=== PATIENT | female | born 1955 | race African-American/Black ===

== ENCOUNTER 2016-12-17 12:01 | Emergency (ER) | payer OTHER ==
[~2016-12-17] VITALS: Ht 167.6 cm; Wt 120.0 kg
[~2016-12-17 12:01] MED LIST: Z.0.NO CURRENT MEDS
[2016-12-17 12:04] VITALS: BP 182/117; PULSE 89; RESP 16; TEMP 97.9; O2SAT 100
--- NOTE | 2016-12-17 18:07 | PD ---
HPI Chief Complaint: GI Complaint Time Seen by Provider: 18:05 Travel History International Travel<30 days: No Contact w/Intl Traveler<30days: No Traveled to known affect area: No History of Present Illness HPI 61-year-old female presents to the emergency department for evaluation of abdominal pain since last night. Patient states she had the same problem "ages ago". However, she cannot remember what happened. Patient denies any previous abdominal surgeries. She has no fevers or chills. She denies any chest pain or shortness of breath. She does report a headache. She states this is her typical headache when her blood pressure is elevated. She denies it being the worst headache of her life. Patient also complains of left foot pain for approximately 2 months. She denies a traumatic injury. The pain is worse with walking. Patient states she is nauseated, but has not had any vomiting. Patient denies any diarrhea or constipation. She denies any other complaints at this time. PFSH Past Medical History High Cholesterol: Yes Diminished Hearing: No Hypertension: Yes Menopausal: Yes Social History Alcohol Use: Yes (4 PK/DAY, NO ETOH IN 3 DAYS) Tobacco Use: Yes (5-6 CIGGS/DAY) Substance Use: No Allergies-Medications (Allergen,Severity, Reaction): Coded Allergies: No Known Allergies (Verified Allergy, Mild, 07/05/08) Reported Meds & Prescriptions Reported Meds & Active Scripts Active No Active Prescriptions or Reported Medications Review of Systems Except as stated in HPI: all other systems reviewed are Neg Physical Exam Narrative GENERAL: Well-developed well-nourished female patient, ambulatory. Afebrile. SKIN: Warm and dry. HEAD: Normocephalic. Atraumatic. EYES: No scleral icterus. No injection or drainage. NECK: Supple, trachea midline. No JVD or lymphadenopathy. CARDIOVASCULAR: Regular rate and rhythm without murmurs, gallops, or rubs. Left pedal pulses 2+. Capillary refills less than 2 seconds to the digits of the left foot. RESPIRATORY: Breath sounds equal bilaterally. No accessory muscle use. Lungs sounds are clear to auscultation. GASTROINTESTINAL: Abdomen soft and nondistended. Patient has tenderness over epigastric and suprapubic regions. MUSCULOSKELETAL: No cyanosis, or edema. BACK: Nontender without obvious deformity. No CVA tenderness. Data Data Last Documented VS Vital Signs Date Time Temp Pulse Resp B/P Pulse Ox O2 Delivery O2 Flow Rate FiO2 12/17/16 19:31 82 19 205/99 97 Room Air 12/17/16 12:04 97.9 Orders Complete Blood Count With Diff (12/17/16 18:03) Comprehensive Metabolic Panel (12/17/16 18:03) Lipase (12/17/16 18:03) Urinalysis - C+S If Indicated (12/17/16 18:03) Electrocardiogram (12/17/16 18:03) Foot, Complete ([id number]) (12/17/16 ) Ondansetron Odt (Zofran Odt) (12/17/16 18:15) Ct Abd/Pel W Iv Contrast(Rout) (12/17/16 19:33) Iv Access Insert/Monitor (12/17/16 19:33) Ecg Monitoring (12/17/16 19:33) Oximetry (12/17/16 19:33) Pantoprazole Inj (Protonix Inj) (12/17/16 19:45) Sodium Chlor 0.9% 1000 Ml Inj (Ns 1000 M (12/17/16 19:33) Sodium Chloride 0.9% Flush (Ns Flush) (12/17/16 19:45) Al-Mag Hy-Si 40-40-4 Mg/Ml Liq (Mag-Al P (12/17/16 19:45) Lidocaine 2% Viscous (Xylocaine 2% Visco (12/17/16 19:45) Ckmb (Isoenzyme) Profile (12/17/16 19:34) Troponin I (12/17/16 19:34) Labs Laboratory Tests Test 12/17/16 12/17/16 18:41 19:09 White Blood Count 9.6 TH/MM3 Red Blood Count 5.05 MIL/MM3 Hemoglobin 14.7 GM/DL Hematocrit 44.3 % Mean Corpuscular Volume 87.6 FL Mean Corpuscular Hemoglobin 29.1 PG Mean Corpuscular Hemoglobin 33.3 % Concent Red Cell Distribution Width 14.4 % Platelet Count 231 TH/MM3 Mean Platelet Volume 7.3 FL Neutrophils (%) (Auto) 65.0 % Lymphocytes (%) (Auto) 28.5 % Monocytes (%) (Auto) 5.5 % Eosinophils (%) (Auto) 0.7 % Basophils (%) (Auto) 0.3 % Neutrophils # (Auto) 6.3 TH/MM3 Lymphocytes # (Auto) 2.7 TH/MM3 Monocytes # (Auto) 0.5 TH/MM3 Eosinophils # (Auto) 0.1 TH/MM3 Basophils # (Auto) 0.0 TH/MM3 CBC Comment DIFF FINAL Differential Comment Sodium Level 138 MEQ/L Potassium Level 4.0 MEQ/L Chloride Level 102 MEQ/L Carbon Dioxide Level 28.2 MEQ/L Anion Gap 8 MEQ/L Blood Urea Nitrogen 10 MG/DL Creatinine 0.84 MG/DL Estimat Glomerular Filtration 84 ML/MIN Rate Random Glucose 102 MG/DL Calcium Level 9.4 MG/DL Aspartate Amino Transf 13 U/L (AST/SGOT) Albumin 4.0 GM/DL Lipase 170 U/L Urine Color YELLOW Urine Turbidity CLEAR Urine pH 6.5 Urine Specific [place] 1.016 Urine Protein NEG mg/dL Urine Glucose (UA) NEG mg/dL Urine Ketones NEG mg/dL Urine Occult Blood NEG Urine Nitrite NEG Urine Bilirubin NEG Urine Urobilinogen LESS THAN 2.0 MG/DL Urine Leukocyte Esterase NEG Urine RBC LESS THAN 1 /hpf Urine WBC 1 /hpf Urine Squamous Epithelial 2 /hpf Cells Urine Bacteria OCC /hpf Urine Mucus FEW /lpf Microscopic Urinalysis Comment CULT NOT INDICATED MDM Medical Decision Making Medical Screen Exam Complete: Yes Emergency Medical Condition: Yes Medical Record Reviewed: Yes Differential Diagnosis Pancreatitis versus UTI versus gastroenteritis versus chronic foot pain Narrative Course 61-year-old female presents to the emergency department for evaluation of abdominal pain and left foot pain. Patient states the abdominal pain and nausea started last night. She has reports a headache that started 1 hour ago. Patient also reports left foot pain for 2 months. EKG, CBC, CMP, lipase, UA are ordered and pending. X-ray left foot is ordered and pending. Workup is initiated in triage. Once a medical bed becomes available, patient will be transferred and care assumed by that provider. Scripts No Active Prescriptions or Reported Meds Corrine Macedo Dec 17, 2016 18:07
[2016-12-17] MEDS ORDERED: ONDANSETRON ODT 4 MG TAB PO ONE (18:15)
--- NOTE | 2016-12-17 18:33 | RADRPT ---
EXAM DATE/TIME: 12/17/2016 18:22 [facility] COMPARISON: No previous studies available for comparison. INDICATIONS : Left foot pain for 2 months with no known injury. MEDICAL HISTORY : None. SURGICAL HISTORY : None. ENCOUNTER: Initial ACUITY: 2 months PAIN SCORE: 8/10 LOCATION: Left foot. FINDINGS: Three view examination of the left foot demonstrates no soft tissue swelling, dislocation, or fractur e. The tarsal bones appear intact. The interphalangeal and metatarsophalangeal joints are intact. The calcaneus is intact. There is spur formation seen at the Achilles attachment site at the clinical science consultant ior calcaneus. Bony mineralization is normal. CONCLUSION: No acute abnormality is seen. There is a calcaneal spur. Geovani Hendricks MD on December 17, 2016 at 18:30 Board Certified Radiologist. This report was verified electronically.
[2016-12-17 19:23] LABS: BACTERIA, URINE OCC /hpf; BLOOD, URINE NEG (NEG); COMMENT (UR) CULT NOT INDICATED; CULTURE IF INDICATED CULT NOT INDICATED; GLUCOSE,URINE NEG (NEG); KETONE, URINE NEG (NEG); MUCUS URINE FEW /lpf (OCC); NITRITE,URINE NEG (NEG); PH, URINE 6.5 (5.0-8.5); SQUAMOUS EPITHELIAL CELL URINE 2 /hpf (0-5); URINE COLOR YELLOW (YELLW/STRAW)
[2016-12-17 19:24] LABS: AUTOMATED NEUTROPHIL # 6.3 TH/MM3 (1.8-7.7); BASOPHIL % 0.3 % (0.0-2.0); EOSINOPHIL # 0.1 TH/MM3 (0-0.4); EOSINOPHIL % 0.7 % (0.0-4.0); HEMATOCRIT 44.3 % (35.0-46.0); HEMO FLAGS DIFF FINAL; LYMPH % 28.5 % (9.0-44.0); LYMPHOCYTE # 2.7 TH/MM3 (1.0-4.8); MEAN CELL VOLUME 87.6 FL (80.0-100.0); MEAN CORPUSCULAR HEMOGLOBIN 29.1 PG (27.0-34.0); MEAN CORPUSCULAR HGB CONC 33.3 % (32.0-36.0); MONO % 5.5 % (0.0-8.0); PLATELET COUNT 231 TH/MM3 (150-450); RED BLOOD COUNT 5.05 MIL/MM3 (4.00-5.30); RED CELL DISTRIBUTION WIDTH 14.4 % (11.6-17.2); WHITE BLOOD COUNT 9.6 TH/MM3 (4.0-11.0)
[2016-12-17 19:31] VITALS: BP 205/99; PULSE 82; RESP 19; O2SAT 97
[2016-12-17] MEDS ORDERED: SODIUM CHLOR 0.9% 1000 ML INJ 1,000 ML IV SCH (19:33)
--- NOTE | 2016-12-17 19:39 | PD ---
Data Data Last Documented VS Vital Signs Date Time Temp Pulse Resp B/P Pulse Ox O2 Delivery O2 Flow Rate FiO2 12/17/16 19:31 82 19 205/99 97 Room Air 12/17/16 12:04 97.9 Orders Complete Blood Count With Diff (12/17/16 18:03) Comprehensive Metabolic Panel (12/17/16 18:03) Lipase (12/17/16 18:03) Urinalysis - C+S If Indicated (12/17/16 18:03) Electrocardiogram (12/17/16 18:03) Foot, Complete ([id number]) (12/17/16 ) Ondansetron Odt (Zofran Odt) (12/17/16 18:15) Ct Abd/Pel W Iv Contrast(Rout) (12/17/16 19:33) Iv Access Insert/Monitor (12/17/16 19:33) Ecg Monitoring (12/17/16 19:33) Oximetry (12/17/16 19:33) Pantoprazole Inj (Protonix Inj) (12/17/16 19:45) Sodium Chlor 0.9% 1000 Ml Inj (Ns 1000 M (12/17/16 19:33) Sodium Chloride 0.9% Flush (Ns Flush) (12/17/16 19:45) Al-Mag Hy-Si 40-40-4 Mg/Ml Liq (Mag-Al P (12/17/16 19:45) Lidocaine 2% Viscous (Xylocaine 2% Visco (12/17/16 19:45) Ckmb (Isoenzyme) Profile (12/17/16 19:34) Troponin I (12/17/16 19:34) Iohexol 350 Inj (Omnipaque 350 Inj) (12/17/16 21:52) Acetaminophen (Tylenol) (12/17/16 22:30) Labs Laboratory Tests Test 12/17/16 12/17/16 18:41 19:09 White Blood Count 9.6 TH/MM3 Red Blood Count 5.05 MIL/MM3 Hemoglobin 14.7 GM/DL Hematocrit 44.3 % Mean Corpuscular Volume 87.6 FL Mean Corpuscular Hemoglobin 29.1 PG Mean Corpuscular Hemoglobin 33.3 % Concent Red Cell Distribution Width 14.4 % Platelet Count 231 TH/MM3 Mean Platelet Volume 7.3 FL Neutrophils (%) (Auto) 65.0 % Lymphocytes (%) (Auto) 28.5 % Monocytes (%) (Auto) 5.5 % Eosinophils (%) (Auto) 0.7 % Basophils (%) (Auto) 0.3 % Neutrophils # (Auto) 6.3 TH/MM3 Lymphocytes # (Auto) 2.7 TH/MM3 Monocytes # (Auto) 0.5 TH/MM3 Eosinophils # (Auto) 0.1 TH/MM3 Basophils # (Auto) 0.0 TH/MM3 CBC Comment DIFF FINAL Differential Comment Sodium Level 138 MEQ/L Potassium Level 4.0 MEQ/L Chloride Level 102 MEQ/L Carbon Dioxide Level 28.2 MEQ/L Anion Gap 8 MEQ/L Blood Urea Nitrogen 10 MG/DL Creatinine 0.84 MG/DL Estimat Glomerular Filtration 84 ML/MIN Rate Random Glucose 102 MG/DL Calcium Level 9.4 MG/DL Total Bilirubin 0.3 MG/DL Aspartate Amino Transf 13 U/L (AST/SGOT) Alanine Aminotransferase 19 U/L (ALT/SGPT) Alkaline Phosphatase 102 U/L Total Creatine Kinase 95 U/L Troponin I LESS THAN 0.02 NG/ML Total Protein 8.8 GM/DL Albumin 4.0 GM/DL Lipase 170 U/L Urine Color YELLOW Urine Turbidity CLEAR Urine pH 6.5 Urine Specific [place] 1.016 Urine Protein NEG mg/dL Urine Glucose (UA) NEG mg/dL Urine Ketones NEG mg/dL Urine Occult Blood NEG Urine Nitrite NEG Urine Bilirubin NEG Urine Urobilinogen LESS THAN 2.0 MG/DL Urine Leukocyte Esterase NEG Urine RBC LESS THAN 1 /hpf Urine WBC 1 /hpf Urine Squamous Epithelial 2 /hpf Cells Urine Bacteria OCC /hpf Urine Mucus FEW /lpf Microscopic Urinalysis Comment CULT NOT INDICATED MDM Supervised Visit with JOSE JUAN: Yes Narrative Course I, Dr. Lockett, have reviewed the advance practice practitioner's documentation and am in agreement, met with the patient face to face, made the diagnosis, and the medical decision making was done by me. See her note for further details. The patient was initially evaluated in triage and brought back to a medical bed when it became available. Briefly this is a 61-year-old female with history of hypertension who presents for evaluation of abdominal pain and left foot pain. The patient reports left lateral foot pain for the last 3 months, however she has not seen a physician for this because she did not have insurance until now. She denies trauma. Since yesterday she has been having epigastric abdominal discomfort. No history of abdominal surgeries. No nausea or vomiting. No diarrhea. No fevers. No chest pain or dyspnea. No known history of cardiac disease. On physical exam the patient has brisk and equal dorsalis pedis pulses bilaterally with both feet warm, dry, no erythema, no signs of infection. There is no obvious deformity to the left foot/ankle, however the patient does have some tenderness to the left lateral foot. Patient also has epigastric tenderness without peritoneal signs. Respiratory abdomen is soft and nontender. Breath sounds are clear and equal bilaterally. Differential includes gastritis, peptic ulcer disease, hepatobiliary disease, pancreatitis, ACS EKG: Sinus, rate 75, normal axis, normal intervals, mild peaked T waves in precordial leads, no acute ischemic normality. Initial vital signs show heart rate 89, blood pressure 182/117, pulse ox 100% on room air, oral temp of 97.9F. CBC is unremarkable. CMP is unremarkable Cardiac enzymes are negative. UA shows occasional bacteria, few mucus, negative leukocyte esterase, negative nitrites, not suggestive of UTI. CT abdomen pelvis: CONCLUSION: 1. No acute abnormality is seen. 2. Suspected leiomyomatous change of the uterus. 3. Mild fatty infiltration of the liver. Patient was made aware of all findings. She is feeling a lot better and is resting comfortably. Her blood pressure is elevated and she has not been on her lisinopril for several months. She is not displaying any signs or symptoms of hypertensive crisis although she does have one of a headache. I will give her a dose of lisinopril here as well as a prescription. She is stable for discharge home with outpatient follow-up with a primary care physician this week. She will be discharged with a prescription for Protonix. She was informed on when to return to the emergency department. She verbalizes understanding and agreement with plan. Diagnosis Primary Impression: Epigastric abdominal pain Additional Impressions: Uterine fibroid Qualified Code: D25.9 - Uterine leiomyoma, unspecified location Elevated blood pressure reading Referrals: Primary Care Physician 3 days Additional Instruction: Follow-up with a primary care physician this week. Return to the emergency department for worsening symptoms or any other concerns. Scripts Lisinopril 20 Mg Tab20 Mg PO DAILY #30 TAB Ref 0 Prov:Kojo Lockett MD 12/17/16 Pantoprazole (Protonix)40 Mg Tab40 Mg PO DAILY #30 TAB Ref 0 Prov:Kojo Lockett MD 12/17/16 Disposition: 01 DISCHARGE HOME Condition: Stable Kojo Lockett MD Dec 17, 2016 19:39
[2016-12-17 19:45] LABS: ANION GAP 8 MEQ/L (5-15); AST (GOT) 13 U/L (15-37); BICARBONATE 28.2 MEQ/L (21.0-32.0); BLOOD UREA NITROGEN 10 MG/DL (7-18); CHLORIDE 102 MEQ/L (98-107); GLOMERULAR FILTRATION RATE 84 ML/MIN (>89); SODIUM (NA) 138 MEQ/L (136-145)
[2016-12-17] MEDS ORDERED: PANTOPRAZOLE SODIUM 40 MG VIAL IVP ONE (19:45)
[2016-12-17] MEDS ORDERED: ALUMINUM/MAGNESIUM/SIMETH 30 ML CUP PO ONE (19:45)
[2016-12-17] MEDS ORDERED: LIDOCAINE VISCOUS 2% SOLN 15 ML UDC PO ONE (19:45)
[2016-12-17] MEDS ORDERED: SODIUM CHLORIDE 0.9% FLUSH 5 ML FLUSH IVF PRN (19:45)
[2016-12-17 19:48] LABS: ALKALINE PHOSPHATASE 102 U/L (45-117); ALT (GPT) 19 U/L (10-53); TOTAL BILIRUBIN ADULT 0.3 MG/DL (0.2-1.0)
[2016-12-17 20:12] LABS: CREATINE KINASE 95 U/L (26-192)
[2016-12-17] MEDS ORDERED: IOHEXOL 350 MG/ML 10 ML VIAL (for RAD DIAG) IV ONE (21:52)
--- NOTE | 2016-12-17 22:07 | RADRPT ---
EXAM DATE/TIME: 12/17/2016 21:46 [facility] COMPARISON: No previous studies available for comparison. INDICATIONS : Epigastric pain with nausea for one day. IV CONTRAST: 70 cc Omnipaque 350 (iohexol) IV ORAL CONTRAST: No oral contrast ingested. RADIATION DOSE: 31.67 CTDIvol (mGy) MEDICAL HISTORY : Hypertension. SURGICAL HISTORY : None. ENCOUNTER: Initial ACUITY: 1 day PAIN SCALE: 6/10 LOCATION: abdomen TECHNIQUE: Volumetric scanning of the abdomen and pelvis was performed. Using automated exposure control and ad justment of the mA and/or kV according to patient size, radiation dose was kept as low as reasonably achievable to obtain optimal diagnostic quality images. FINDINGS: LOWER LUNGS: The visualized lower lungs are clear. LIVER: There is mild fatty infiltration of the liver without lesion. There is no dilation of the biliary tr ee. No calcified gallstones. SPLEEN: Normal size without lesion. PANCREAS: Within normal limits. KIDNEYS: Normal in size and shape. There is no mass, stone or hydronephrosis. ADRENAL GLANDS: Within normal limits. VASCULAR: There is no aortic aneurysm. BOWEL/MESENTERY: The stomach, small bowel, and colon demonstrate no acute abnormality. There is no free intraperitone al air or fluid. ABDOMINAL WALL: Within normal limits. RETROPERITONEUM: There is no lymphadenopathy. BLADDER: No wall thickening or mass. REPRODUCTIVE: The uterus appears enlarged and heterogeneous likely related to leiomyomatous change. INGUINAL: There is no lymphadenopathy or hernia. MUSCULOSKELETAL: There is degenerative change in the lumbar spine. CONCLUSION: 1. No acute abnormality is seen. 2. Suspected leiomyomatous change of the uterus. 3. Mild fatty infiltration of the liver. Geovani Hendricks MD on December 17, 2016 at 22:02 Board Certified Radiologist. This report was verified electronically.
[2016-12-17] MEDS ORDERED: PROT40TA PO (22:16)
[2016-12-17] MEDS ORDERED: ACETAMINOPHEN 325 MG TAB PO ONE (22:30)
[2016-12-17] MEDS ORDERED: LISI-515 PO (22:42)
[2016-12-17] MEDS ORDERED: LISINOPRIL 20 MG TAB PO ONE (22:45)
[2016-12-17 23:44] VITALS: BP 158/76
--- NOTE | 2016-12-18 08:43 | EKG ---
Date Performed: 12/17/2016 Time Performed: 19:04:21 PTAGE: 61 years EKG: Sinus rhythm NORMAL ECG NO PREVIOUS TRACING DOCTOR: Yvan Sunshine Interpretating Date/Time 12/18/2016 08:40:33
[2016-12-31] MEDS ORDERED: LISI40TA PO (15:28)
[2017-01-29] MEDS ORDERED: LANCETS1 MI1 (16:23)
[2017-01-29] MEDS ORDERED: LISI40TA PO (16:23)
[2017-01-29] MEDS ORDERED: LAMI250T PO (16:23)
[2017-01-29] MEDS ORDERED: BLOOD GLUCOSE T1 TES (16:23)
[2017-01-29] MEDS ORDERED: METF500T PO (16:23)
[2017-01-29] MEDS ORDERED: BLOOD GLUCOSE M1 KIT (16:23)
[2017-02-09] MEDS ORDERED: ASPI81CH3 CHEW (18:22)
[2017-02-09] MEDS ORDERED: ATOR40TA16 PO (18:22)
== END 2016-12-18 | disposition home or self-care (01) ==
LOC: NEPB 12:01
DX: R10.13 Epigastric pain (principal); D25.9 Leiomyoma of uterus, unspecified; I10 Essential (primary) hypertension; E78.00 Pure hypercholesterolemia, unspecified; F17.210 Nicotine dependence, cigarettes, uncomplicated
CPT/HCPCS: 73630; 74177; 80053; 81001; 82550; 83690; 84484; 85025; 93005; 96374; 99284; C9113; J7030; Q9967

== ENCOUNTER 2017-05-11 16:03 | Inpatient (IN) | payer OTHER ==
[~2017-05-11] VITALS: Ht 162.6 cm; Wt 115.0 kg
[~2017-05-11 16:03] MED LIST changes: +ASPI81CH3 CHEW; +ATOR40TA16 PO; +BLOOD GLUCOSE M1 KIT; +BLOOD GLUCOSE T1 TES; +LANCETS1 MI1; +LISI40TA PO; +METF500T PO; -Z.0.NO CURRENT MEDS
[2017-05-11 16:06] VITALS: BP 230/110; PULSE 76; RESP 20; TEMP 97.9; O2SAT 97
--- NOTE | 2017-05-11 16:16 | PD ---
Physical Exam Time Seen by Provider: 16:13 Narrative 61 y/o female here for evaluation of 4 days R eye blurred vision. Headache started today. Sent by Dr. Bowden. She is hypertensive in triage. Vital signs reviewed. Seen at triage desk. Awaiting bed placement. Data Data Last Documented VS Vital Signs Date Time Temp Pulse Resp B/P Pulse Ox O2 Delivery O2 Flow Rate FiO2 05/11/17 16:06 97.9 76 20 230/110 97 Room Air [facility] Medical Record Reviewed: Yes Supervised Visit with JOSE JUAN: Maksim Roberts May 11, 2017 16:16
--- NOTE | 2017-05-11 17:14 | PD ---
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 She denies any eye pain, neck stiffness, fevers, or any other symptoms. Modifying Factors: None Associated Signs & Symptoms: Headaches, right eye blurriness Risk Factors: Left eye blind, hypertension PFSH Past Medical History Hx Anticoagulant Therapy: Yes (asa) Cardiovascular Problems: Yes (htn) High Cholesterol: Yes Diabetes: Yes (metformin) Diminished Hearing: No Hypertension: Yes Menopausal: Yes Social History Alcohol Use: No Tobacco Use: No (QUIT 6 YEARS AGO) Substance Use: No Allergies-Medications (Allergen,Severity, Reaction): Coded Allergies: No Known Allergies (Verified , 05/11/17) Reported Meds & Prescriptions Reported Meds & Active Scripts Active Atorvastatin (Atorvastatin Calcium) 40 Mg Tab 40 Mg PO HS Metformin (Metformin HCl) 500 Mg Tab 500 Mg PO BIDPC With meals Aspirin 81 Low Dose (Aspirin) 81 Mg Chew 81 Mg CHEW DAILY Blood Glucose Test Strips 1 Elizabeth Elizabeth 1 Ea .ROUTE DIRECTED Lancets 1 Mis Mis 1 Ea .ROUTE DIRECTED Blood Glucose Monitoring W/Device (Device) 1 Kit Kit 1 Kit .ROUTE DIRECTED Lisinopril 40 Mg Tab 40 Mg PO DAILY Review of Systems Except as stated in HPI: all other systems reviewed are Neg Physical Exam Narrative GENERAL: Well-developed middle age -[place] female patient currently in moderate distress. Awake and oriented 3. SKIN: Focused skin assessment warm/dry. HEAD: Atraumatic. Normocephalic. EYES: Left eye blindness with irregular pupil. No scleral icterus. No injection or drainage. Right pupil is round, reactive to light. Darren-Pen measurements on the right is 24, 22, and 31. ENT: No nasal bleeding or discharge. Mucous membranes pink and moist. NECK: Trachea midline. No JVD. CARDIOVASCULAR: Regular rate and rhythm. No murmur appreciated. RESPIRATORY: No accessory muscle use. Clear to auscultation. Breath sounds equal bilaterally. GASTROINTESTINAL: Abdomen soft, non-tender, nondistended. Hepatic and splenic margins not palpable. MUSCULOSKELETAL: No obvious deformities. No clubbing. No cyanosis. No edema. NEUROLOGICAL: Awake and alert. No obvious cranial nerve deficits. Motor grossly within normal limits. Normal speech. PSYCHIATRIC: Appropriate mood and affect; insight and judgment normal. Data Data Last Documented VS Vital Signs Date Time Temp Pulse Resp B/P Pulse Ox O2 Delivery O2 Flow Rate FiO2 05/11/17 16:06 97.9 76 20 230/110 97 Room Air Orders Complete Blood Count With Diff (05/11/17 17:06) Basic Metabolic Panel (Bmp) (05/11/17 17:06) Prothrombin Time / Inr (Pt) (05/11/17 17:06) Act Partial Throm Time (Ptt) (05/11/17 17:06) Ct Brain W/O Iv Contrast(Rout) (05/11/17 17:06) Ecg Monitoring (05/11/17 17:06) Iv Access Insert/Monitor (05/11/17 17:06) Oximetry (05/11/17 17:06) Sodium Chloride 0.9% Flush (Ns Flush) (05/11/17 17:15) Clonidine (Catapres) (05/11/17 17:15) Proparacaine 0.5% Opth Soln (Alcaine 0.5 (05/11/17 17:15) Admit Order (Ed Use Only) (05/11/17 19:14) Labs Laboratory Tests Test 05/11/17 17:30 Prothrombin Time 10.7 SEC Prothromb Time International 1.0 RATIO Ratio Activated Partial 20.4 SEC Thromboplast Time Sodium Level 142 MEQ/L Potassium Level 4.0 MEQ/L Chloride Level 108 MEQ/L Carbon Dioxide Level 25.1 MEQ/L Anion Gap 9 MEQ/L Blood Urea Nitrogen 12 MG/DL Creatinine 0.88 MG/DL Estimat Glomerular Filtration 80 ML/MIN Rate Random Glucose 76 MG/DL Calcium Level 10.0 MG/DL MDM Medical Decision Making Medical Screen Exam Complete: Yes Emergency Medical Condition: Yes Medical Record Reviewed: Yes Interpretation(s) Laboratory Tests Test 05/11/17 17:30 Activated Partial 20.4 SEC Thromboplast Time (24.3-30.1) Chloride Level 108 MEQ/L (98-107) Estimat Glomerular Filtration 80 ML/MIN (>89) Rate Last [address] 05/11/17 1706 Signed Impressions: Service Date/Time: Thursday, May 11, 2017 17:57 - CONCLUSION: Negative for acute process. Ray Gr MD FACR Differential Diagnosis Blurry vision, elevated blood pressurehypertensive urgency versus glaucoma versus vitreal bleeding versus amaurosis fugax Narrative Course CT did not show any signs of acute intracranial processes. Her right ocular pressures are mildly elevated. Her blood pressure is fairly elevated. Clonidine was given in the ER with improvement in blood pressure. At this point , my plan would be to admit her for further evaluation and treatment of blood pressure and hypertensive urgency. Case was discussed with family practice resident service for admission. In addition, considering patient's ocular issue in the good eye, and the fact that he cannot do a good dilated eye exam in the ER, ophthalmology was consult on the case. Diagnosis Primary Impression: Hypertensive urgency Additional Impression: Blurry vision, right eye Admitting Information Admitting Physician Requests: Admit Rosina Iverson MD May 11, 2017 17:14
[2017-05-11] MEDS ORDERED: cloNIDine HCL 0.2 MG TAB PO ONE (17:15)
[2017-05-11] MEDS ORDERED: PROPARACAINE HCL 0.5% OPHT SOLN 15 ML BTL RIGHT EYE ONE (17:15)
[2017-05-11] MEDS ORDERED: SODIUM CHLORIDE 0.9% FLUSH 10 ML FLUSH IVF PRN (17:15)
[2017-05-11 18:06] LABS: APTT (PATIENT) 20.4 SEC (24.3-30.1); PROTHROMBIN TIME - PATIENT 10.7 SEC (9.8-11.6)
[2017-05-11] MEDS ORDERED: ATOR40TA16 PO (18:12)
[2017-05-11 18:13] LABS: BICARBONATE 25.1 MEQ/L (21.0-32.0)
--- NOTE | 2017-05-11 18:14 | RADRPT ---
EXAM DATE/TIME: 05/11/2017 17:57 [facility] COMPARISON: No previous studies available for comparison. INDICATIONS : Patient complains of headache with high blood pressure.Visual disturbance. RADIATION DOSE: 35.27 CTDIvol (mGy) MEDICAL HISTORY : Cardiovascular disease. Hypertension. Diabetes mellitus type 1. SURGICAL HISTORY : None. ENCOUNTER: Initial ACUITY: 1 day PAIN SCALE: 7/10 LOCATION: cranial TECHNIQUE: Multiple contiguous axial images were obtained of the head. Using automated exposure control and adj ustment of the mA and/or kV according to patient size, radiation dose was kept as low as reasonably a chievable to obtain optimal diagnostic quality images. DICOM format image data is available electro nically for review and comparison. FINDINGS: CEREBRUM: The ventricles are normal for age. No evidence of midline shift, mass lesion, hemorrhage or acute in farction. No extra-axial fluid collections are seen. POSTERIOR FOSSA: The cerebellum and brainstem are intact. The 4th ventricle is midline. The cerebellopontine angle i s unremarkable. EXTRACRANIAL: The visualized portion of the orbits is intact. SKULL: The calvaria is intact. No evidence of skull fracture. CONCLUSION: Negative for acute process. Ray Gr MD FACR on May 11, 2017 at 18:13 Board Certified Radiologist. This report was verified electronically.
[2017-05-11 19:33] VITALS: BP 159/79; PULSE 84; RESP 17; RESP 18; O2SAT 98
[2017-05-11] MEDS ORDERED: ZOLPIDEM TARTRATE 5 MG TAB PO PRN (19:45)
[2017-05-11] MEDS ORDERED: ONDANSETRON HCL 4 MG/2 ML VIAL IVP PRN (19:45)
[2017-05-11] MEDS ORDERED: ACETAMINOPHEN 325 MG TAB PO PRN (19:45)
[2017-05-11] MEDS ORDERED: SODIUM CHLORIDE 0.9% FLUSH 10 ML FLUSH IV FLUSH PRN (19:45)
[2017-05-11] MEDS ORDERED: cloNIDine HCL 0.1 MG TAB PO PRN (19:45)
[2017-05-11] MEDS ORDERED: ENALAPRILAT 1.25 MG/ML VIAL IV PRN (19:45)
[2017-05-11 19:52] VITALS: O2SAT 97
[2017-05-11] MEDS ORDERED: DEXTROSE 50% IN WATER 50 ML VIAL(D50) IV PRN (20:00)
[2017-05-11] MEDS ORDERED: GLUCAGON 1 MG/ML VIAL OTHER PRN (20:00)
--- NOTE | 2017-05-11 20:01 | HHI.HP ---
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 She reports that on Thursday (05/08/17) she started to develop blurry vision of her right eye. Her left eye was unchanged from baseline of only being able to appreciate light. She denied any eye pain at that time or even now. She denied any eye discharge. Over the next couple days her vision mildly improved however today (05/11/17) see her vision became acutely worse and she decided to go back and see her primary care physician Dr. Bowden. She also started developing a severe headache. She felt like she was seeing some black dots throughout her vision as well. The new headache was a 7 out of 10 and it was across her forehead. She says she been taking her medications but admits to not taking them today. She denies any chest pain, fever, chills, nausea or vomiting, abdominal pain, calf tenderness. She does not feel like she is having any palpitations. She does not think this is the worst headache of her life. She admits to having a six-month period in her life when she was in her 20s of complete loss of vision of her right eye. She was treated during that 6 month period uncertain as to who the physician was, as well as uncertain to the cause. Her vision gradually improved and was fully regained in her right eye. ( Mirza Paez MD R2) Review of Systems Constitutional: COMPLAINS OF: Dizziness, DENIES: Fatigue, Fever, Weight gain, Weight loss, Change in appetite Endocrine: DENIES: Abnorml menstrual pattern, Polydipsia Eyes: COMPLAINS OF: Blurred vision, Vision loss, DENIES: Eye pain, Photosensitivity, Double Vision Ears, nose, mouth, throat: DENIES: Tinnitus, Hearing loss, Throat pain, Hoarseness, Sinus Pain Respiratory: DENIES: Cough, Wheezing, Sputum production, Shortness of breath Cardiovascular: DENIES: Chest pain, Dyspnea on Exertion, Lower Extremity Edema , Claudication Gastrointestinal: DENIES: Abdominal pain, Diarrhea, Nausea, Vomiting Musculoskeletal: DENIES: Joint pain, Joint Swelling, Back pain, Neck pain Hematologic/lymphatic: DENIES: Bruising Neurologic: COMPLAINS OF: Headache, DENIES: Abnormal gait, Localized weakness , Seizures, Speech Problems, Tremor, Poor Balance Psychiatric: DENIES: Anxiety, Confusion, Depression (Mirza Paez MD R2) Past Family Social History Past Medical History * Hypertension * Uterine fibroid * Type 2 diabetes on metformin * L eye blindness secondary to trauma as child Past Surgical History None Reported Medications Reported Meds & Active Scripts Active Atorvastatin (Atorvastatin Calcium) 40 Mg Tab 40 Mg PO HS Metformin (Metformin HCl) 500 Mg Tab 500 Mg PO BIDPC With meals Aspirin 81 Low Dose (Aspirin) 81 Mg Chew 81 Mg CHEW DAILY Blood Glucose Test Strips 1 Elizabeth Elizabeth 1 Ea .ROUTE DIRECTED Lancets 1 Mis Mis 1 Ea .ROUTE DIRECTED Blood Glucose Monitoring W/Device (Device) 1 Kit Kit 1 Kit .ROUTE DIRECTED Lisinopril 40 Mg Tab 40 Mg PO DAILY (Mirza Paez MD R2) Allergies: Coded Allergies: No Known Allergies (Verified , 05/11/17) Active Ordered Medications Current Medications Medications (Trade) Dose Ordered Sig/Brii Route Start Time Stop Time Status Last Admin (NS Flush) 2 ml UNSCH PRN IVF 05/11/17 17:15 Family History * Hypertension * T2DM * Mother: secondary to cardiac complications (faulty pacemaker per patient) Social History * Former smoker but quit 7 year ago; Used to smoke 1 ppd x 15 years * Denies alcohol use * Used to smoke marijuana * In a monogamous relationship with (Mirza Paez MD R2) Physical Exam Vital Signs Vital Signs Date Time Temp Pulse Resp B/P Pulse Ox O2 Delivery O2 Flow Rate FiO2 05/11/17 19:33 84 18 159/79 98 Room Air 05/11/17 19:33 17 98 Room Air 05/11/17 16:06 97.9 76 20 230/110 97 Room Air Physical Exam GENERAL: Well-nourished, well-developed sitting on exam room table in no acute distress. SKIN: Warm and dry. No obvious rashes. EYES: No scleral icterus. Bilateral eyes injected with tearing. No drainage. PERRLA. EOMI without pain. Visual field with corrective lenses testing showing bilateral vision of 20/50, right eye 20/50, and left only appreciating light. Patient with baseline strabismus with leftward deviating left. Right eye peripheral field vision is intact. HENT: Normocephalic. Atraumatic. MMM. No JVD or LAD appreciated. No temporal tenderness to palpation. NECK: Supple, trachea midline. No JVD or lymphadenopathy. CARDIOVASCULAR: Regular rate and rhythm without obvious murmurs, gallops, or rubs. RESPIRATORY: Clear to auscultation bilaterally with no CRW. No increased work of breathing. GASTROINTESTINAL: Abdomen soft, non-tender, nondistended with positive bowel sounds. No hepatosplenomegaly.. MUSCULOSKELETAL: No cyanosis or edema. Strength grossly WNL. NEURO/PSYCH: AAO 3. Cranial nerves II through XII intact. No focal abnormalities. Motor and sensory grossly normal. Laboratory Laboratory Tests Test 05/11/17 17:30 Prothrombin Time 10.7 Prothromb Time International 1.0 Ratio Activated Partial 20.4 Thromboplast Time Sodium Level 142 Potassium Level 4.0 Chloride Level 108 Carbon Dioxide Level 25.1 Anion Gap 9 Blood Urea Nitrogen 12 Creatinine 0.88 Estimat Glomerular Filtration 80 Rate Random Glucose 76 Calcium Level 10.0 (Mirza Paez MD R2) Result Diagram: 05/11/171729 Imaging Last Impressions Head CT 05/11/171705 Signed Impressions: Service Date/Time: Thursday, May 11, 2017 17:57 - CONCLUSION: Negative for acute process. 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 Being admitted for hypertensive urgency. Code Status Full code Discussed Condition With wdw: Medicine Team B (Mirza Paez MD R2) Attending Attestation THIS CASE WAS DISCUSSED WITH THE RESIDENT PHYSICIAN. I HAVE REVIEWED THE RECORD AND AGREE WITH THE ABOVE NOTE AND PLAN OF CARE WAS DISCUSSED. I HAVE AUTHORIZED THE ORDER FOR PLACEMENT IN OUT-PATIENT OBSERVATION STATUS. ( Felecia Villela MD) Problem List: (1) Hypertensive urgency Status: Acute Plan: Admitted for hypertensive urgency. In the ED her blood pressure was 230/ 110. After 1 dose of clonidine it was 159/79. * Admit to observation * Started Vasotec per protocol * Started clonidine per protocol * Tylenol for headache * Holding home lisinopril at this time * Trending troponins * Trending EKG * CBCs, BMP ordered for the a.m. * Placed on telemetry * Vitals every 4 (2) Blurry vision, right eye Status: Acute Plan: New-onset right eye blurry vision. No pain with movement. No temporal pain. Peripheral vision intact. Per patient's sight is blurry. CT performed no acute processes. * Consulted ophthalmology, Dr. Dixon, recommendations appreciated * See Hypertensive plan above (3) Type 2 diabetes mellitus Status: Acute Plan: History of type 2 diabetes. Holding metformin. * Blood glucoses per protocol * Low-dose sliding scale per protocol (4) Nutrition, metabolism, and development symptoms Status: Acute Plan: Diet: Diabetic diet Fluids: Adequate by mouth Vitals every 4 Out of bed ad carl. DVT prophylaxis: SCDs, heparin every 8 CODE STATUS: Full code Disposition: Pending improved control of hypertension and ophthalmology recommendations (Mirza Paez MD R2) Mirza Paez MD R2 May 11, 2017 20:01 Felecia Villela MD May 12, 2017 14:43
[2017-05-11 20:14] LABS: AUTOMATED NEUTROPHIL # 3.5 TH/MM3 (1.8-7.7); BASOPHIL % 0.3 % (0.0-2.0); EOSINOPHIL # 0.2 TH/MM3 (0-0.4); HEMATOCRIT 41.4 % (35.0-46.0); HEMO FLAGS DIFF FINAL; LYMPH % 38.8 % (9.0-44.0); LYMPHOCYTE # 2.6 TH/MM3 (1.0-4.8); MEAN CELL VOLUME 85.8 FL (80.0-100.0); MEAN CORPUSCULAR HEMOGLOBIN 28.8 PG (27.0-34.0); MEAN CORPUSCULAR HGB CONC 33.6 % (32.0-36.0); MONO % 6.2 % (0.0-8.0); NEUT % 51.7 % (16.0-70.0); PLATELET COUNT 230 TH/MM3 (150-450); RED BLOOD COUNT 4.83 MIL/MM3 (4.00-5.30); RED CELL DISTRIBUTION WIDTH 14.8 % (11.6-17.2); WHITE BLOOD COUNT 6.8 TH/MM3 (4.0-11.0)
[2017-05-11 21:04] VITALS: BP 132/85; PULSE 63; RESP 17; TEMP 98; O2SAT 97
[2017-05-11] MEDS: INSULIN ASPART SUPPLEMENTAL SCALE SQ SCH (21:25)
[2017-05-11] MEDS: HEPARIN SODIUM - SQ 10,000 UNITS/ML VIAL SQ SCH (21:25)
[2017-05-11] MEDS: SODIUM CHLORIDE 0.9% FLUSH 10 ML FLUSH IV FLUSH SCH (21:25)
[2017-05-11] MEDS: DOCUSATE SODIUM 50 MG/SENNA 8.6 MG TAB PO SCH (21:25)
[2017-05-11] MEDS: ATORVASTATIN 40 MG TAB PO SCH (21:25)
[2017-05-12] VITALS (8 sets, daily range): BP systolic 113–172; BP diastolic 61–94; PULSE 63–76; RESP 17–20; TEMP 98.1–98.7; O2SAT 96–99
[2017-05-12 00:37] LABS: HDL CHOLESTEROL 36.9 MG/DL (40.0-60.0); LDL CHOLESTEROL 109 MG/DL (0-99)
[2017-05-12] MEDS: HEPARIN SODIUM - SQ 10,000 UNITS/ML VIAL SQ SCH ×3 (06:14→21:17)
[2017-05-12] MEDS: INSULIN ASPART SUPPLEMENTAL SCALE SQ SCH ×4 (06:15→21:00)
[2017-05-12 06:38] LABS: AUTOMATED NEUTROPHIL # 2.9 TH/MM3 (1.8-7.7); BASOPHIL % 0.3 % (0.0-2.0); EOSINOPHIL # 0.2 TH/MM3 (0-0.4); EOSINOPHIL % 3.5 % (0.0-4.0); HEMATOCRIT 39.4 % (35.0-46.0); HEMO FLAGS DIFF FINAL; LYMPH % 33.2 % (9.0-44.0); LYMPHOCYTE # 1.8 TH/MM3 (1.0-4.8); MEAN CELL VOLUME 86.8 FL (80.0-100.0); MEAN CORPUSCULAR HEMOGLOBIN 29.3 PG (27.0-34.0); MEAN CORPUSCULAR HGB CONC 33.8 % (32.0-36.0); MONO % 8.5 % (0.0-8.0); NEUT % 54.5 % (16.0-70.0); PLATELET COUNT 207 TH/MM3 (150-450); RED BLOOD COUNT 4.54 MIL/MM3 (4.00-5.30); WHITE BLOOD COUNT 5.4 TH/MM3 (4.0-11.0)
[2017-05-12 07:55] LABS: ANION GAP 7 MEQ/L (5-15); BICARBONATE 26.2 MEQ/L (21.0-32.0); BLOOD UREA NITROGEN 12 MG/DL (7-18); CHLORIDE 106 MEQ/L (98-107); GLOMERULAR FILTRATION RATE 82 ML/MIN (>89); POTASSIUM 3.6 MEQ/L (3.5-5.1); SODIUM (NA) 139 MEQ/L (136-145)
[2017-05-12] MEDS: SODIUM CHLORIDE 0.9% FLUSH 10 ML FLUSH IV FLUSH SCH ×2 (08:23→21:16)
[2017-05-12] MEDS: LISINOPRIL 20 MG TAB PO SCH (08:23)
[2017-05-12] MEDS: ASPIRIN 81 MG CHEW TAB CHEW SCH (08:23)
[2017-05-12] MEDS: DOCUSATE SODIUM 50 MG/SENNA 8.6 MG TAB PO SCH ×2 (08:23→21:16)
--- NOTE | 2017-05-12 09:52 | EKG ---
Date Performed: 05/12/2017 Time Performed: 05:32:19 PTAGE: 61 years EKG: Sinus rhythm NORMAL ECG Compared to prior tracing no significant change PREVIOUS TRACING : 05/11/2017 19.41 DOCTOR: Jac Lopez Interpretating Date/Time 05/12/2017 09:48:38
--- NOTE | 2017-05-12 10:02 | EKG ---
Date Performed: 05/11/2017 Time Performed: 19:41:15 PTAGE: 61 years EKG: Sinus rhythm NORMAL ECG Compared to prior tracing no significant change PREVIOUS TRACING : 12/17/16 DOCTOR: Jac Lopez Interpretating Date/Time 05/12/2017 09:56:33
--- NOTE | 2017-05-12 10:39 | HHI.FPPN ---
Subjective Remarks Patient was seen and evaluated this morning. She complains of a headache, which she says is located across her forehead. She describes the pain as throbbing and sharp that is there all the time. She says the Tylenol she has received in ED has only alleviated the pain a little. She denies light sensitivity but admits to some sound sensitivity. She denies nausea/vomiting. The patient states that she has been experiencing headaches for the past week, which is unusual for her. She denies a personal and family history of migraines. The patient continues to experience blurry vision. She describes seeing "black spots" and a "veil." She admits to wearing glasses; she received new prescription lenses about three months ago. She says that she experienced temporary blindness in her right eye for approximately 6 month 20 years ago. She was never told why she went blind. She denies having any more recent episodes of vision changes in her right eye. Of note, she only sees light and shadows in her left eye since a traumatic injury as a child. Patients admits to missing some doses of her blood pressure medication over the past few weeks. She has been on Lisinopril at the current dosage for years. She does not see a alteration manager; she sees Dr. Bowden at the [facility]. (Eunice Peters MD R1) Objective Vitals Vital Signs Date Time Temp Pulse Resp B/P Pulse Ox O2 Delivery O2 Flow Rate FiO2 05/12/17 08:09 98.7 72 18 155/94 96 05/12/17 04:07 98.4 63 18 162/85 97 05/12/17 00:06 98.2 69 17 113/61 97 05/11/17 21:04 98.0 63 17 132/85 97 05/11/17 19:52 97 21 05/11/17 19:33 84 18 159/79 98 Room Air 05/11/17 19:33 17 98 Room Air 05/11/17 16:06 97.9 76 20 230/110 97 Room Air (Eunice Peters MD R1) Result Diagram: 05/12/17 0558 05/12/17 0611 Other Results MRI of Orbits with/without contrast pending. Imaging Last Impressions Head CT 05/11/17 1706 Signed Impressions: Service Date/Time: Thursday, May 11, 2017 17:57 - CONCLUSION: Negative for acute process. Ray Gr MD FACR Objective Remarks GENERAL: Well-nourished, well-developed sitting in hospital bed in no apparent distress. SKIN: Warm and dry. No obvious rashes. EYES: Bilateral eyes injected. No drainage. No scleral icterus. PERRLA. EOMI without pain. Right eye visual field limited. Left eye only appreciates light. HENT: Normocephalic. Atraumatic. MMM. NECK: Supple, trachea midline. No JVD or lymphadenopathy. CARDIOVASCULAR: Regular rate and rhythm without obvious murmurs, gallops, or rubs. RESPIRATORY: Clear to auscultation bilaterally. No increased work of breathing. GASTROINTESTINAL: Abdomen soft, non-tender, nondistended with positive bowel sounds. No hepatosplenomegaly.. MUSCULOSKELETAL: No cyanosis or edema. NEURO/PSYCH: Alert and oriented 3. Cranial nerves II through XII intact. No focal abnormalities. Motor and sensory grossly normal. Medications and IVs Current Medications Medications (Trade) Dose Ordered Sig/Brii Route Start Time Stop Time Status Last Admin (NS Flush) 2 ml UNSCH PRN IV FLUSH 05/11/17 19:45 (NS Flush) 2 ml BID IV FLUSH 05/11/17 21:00 05/12/17 08:23 (Catapres) 0.1 mg Q6H PRN PO 05/11/17 19:45 (Tylenol) 650 mg Q4H PRN PO 05/11/17 19:45 05/12/17 04:27 (Zofran Inj) 4 mg Q6H PRN IVP 05/11/17 19:45 (Ambien) 5 mg HS PRN PO 05/11/17 19:45 (Heparin Inj) 5,000 units Q8HR SQ 05/11/17 22:00 05/12/17 06:14 (Monica-Colace) 1 tab BID PO 05/11/17 21:00 05/12/17 08:23 (D50w (Vial) Inj) 50 ml UNSCH PRN IV 05/11/17 20:00 (Glucagon Inj) 1 mg UNSCH PRN OTHER 05/11/17 20:00 (Aspirin Chew) 81 mg DAILY CHEW 05/12/17 09:00 7/11/17 08:23 (Lipitor) 40 mg HS PO 05/11/17 21:00 05/11/17 21:25 (Prinivil) 40 mg DAILY PO 05/12/17 09:00 05/12/17 08:23 (Round O 5-325 Mg) 1 tab Q4H PRN PO 05/12/17 10:15 (Eunice Peters MD R1) Urinary Catheter: No (Eunice Peters MD R1) Vascular Central Line Catheter: No (Eunice Peters MD R1) A/P Assessment and Plan This is a 61-year-old -[place] female with past history significant for hypertension, hyperlipidemia, type 2 diabetes, and 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 Admitted for hypertensive emergency with visual changes. ( Eunice Peters MD R1) Attending Attestation Patient seen and examined. Case reviewed and discussed with the resident team. Agree with plan of care as discussed with me and documented in the resident note. Concerned about possible vascular process vs retinal detachment. Will image orbits and consult optho for evaluation. (Felecia Villela MD) Problem List: (1) Hypertensive emergency Status: Acute Plan: Admitted to observation for hypertensive emergency. * In ED, her blood pressure was recorded as 230/110. After one dose of clonidine 0.2mg once PO, BP was 159/79. * Patient also complaining of visual changes in her right eye. Plan: * Started clonidine 0.1mg q6h PRN PO per protocol - not required at this time. * Tylenol and Round O-5 for headache. * Started home BP meds; Lisinopril 40mg daily PO. * Trending troponins - Troponin x2 negative * Trending EKG - EKGs x2 normal * Placed on telemetry * Vitals q4h. (2) Blurry vision, right eye Status: Acute Plan: New-onset right eye blurry vision. No pain with movement. No temporal pain. Peripheral vision limited. * CT performed - showed no acute processes. * MRI of orbits with and without contrast pending. * Consulted ophthalmology, Dr. Dixon, recommendations appreciated. * See Hypertensive Plan above. (3) Type 2 diabetes mellitus Status: Acute Plan: History of Type II diabetes. Holding metformin. * Blood glucoses per protocol. * Low-dose sliding scale per protocol. Has not required insulin since admission. (4) Fluid, Electrolyte, Nutrition and Prophylaxis Status: Acute Plan: Fluid: * Adequate PO intake. Electrolyte * Replete if necessary. Nutrition * Diabetic Diet DVT Prophylaxis: * SCDs - not using at this time. * Heparin 5,000 units q8h SQ GI Prophylaxis: * Not indicated at this time. (Eunice Peters MD R1) Eunice Peters MD R1 May 12, 2017 10:39 Felecia Villela MD May 12, 2017 14:46
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
[2017-05-12] MEDS: ACETAMINOPHEN/HYDROcodone 325 MG/5 MG TAB PO PRN (16:13)
[2017-05-12] MEDS ORDERED: amLODIPine BESYLATE 5 MG TAB PO ONE (17:00)
[2017-05-12] MEDS ORDERED: GADODIAMIDE PF 287 MG/ML 20 ML VIAL (for RAD MRI) IV ONE (20:25)
--- NOTE | 2017-05-12 20:45 | RADRPT ---
EXAM DATE/TIME: 05/12/2017 19:30 [place] COMPARISON: CT BRAIN W/O CONTRAST, May 11, 2017, 17:57. INDICATIONS : Retinal detachment vs vessel occlusion, right eye. Blurry vision, right eye. Headache. CONTRAST: 20 cc Omniscan (gadodiamide) IV MEDICAL HISTORY : Hypertension. Left eye blindness. Diabetes. Hyperlipidemia. Uterine fibroid. SURGICAL HISTORY : None. ENCOUNTER: Subsequent ACUITY: 4-6 days PAIN SCORE: 8/10 LOCATION: cranial TECHNIQUE: Multiplanar, multisequence MRI examination was performed. FINDINGS: PRESEPTAL: The preseptal soft tissues are normal thickness. GLOBES: There is a posterior protrusion of the sclera involving the left posterior lateral globe. No mass. Ri ght globe is normal. EXTRAOCULAR MUSCLES: Symmetric and normal thickness. ORBITAL HICKMAN: Intact. The greater wing of the sphenoid is intact. OPTIC NERVES: Normal size. The optic canal is not enlarged. The retroconal fat is normal in appearance. LACRIMAL GLANDS: No evidence of mass. RETROAPICAL REGION: The optic chiasm is grossly intact. The visualized portion of the cavernous sinus and brainstem is i ntact. Multifocal areas of high flair signal are seen throughout the periventricular and subcortical white m atter of both cerebral hemispheres. CONCLUSION: 1. Left unilateral staphyloma. 2. Chronic small vessel ischemic change. Cruz Rice Jr., MD on May 12, 2017 at 20:32 Board Certified Radiologist. This report was verified electronically.
[2017-05-12] MEDS: ATORVASTATIN 40 MG TAB PO SCH (21:16)
[2017-05-13] VITALS (7 sets, daily range): BP systolic 136–189; BP diastolic 87–116; PULSE 68–75; RESP 14–16; TEMP 97.6–98.1; O2SAT 97–100
[2017-05-13] MEDS: ACETAMINOPHEN/HYDROcodone 325 MG/5 MG TAB PO PRN (04:14)
[2017-05-13] MEDS: HEPARIN SODIUM - SQ 10,000 UNITS/ML VIAL SQ SCH (06:24)
[2017-05-13] MEDS: INSULIN ASPART SUPPLEMENTAL SCALE SQ SCH ×2 (06:24→12:42)
[2017-05-13] MEDS ORDERED: amLODIPine BESYLATE 5 MG TAB PO SCH (09:00)
[2017-05-13] MEDS: SODIUM CHLORIDE 0.9% FLUSH 10 ML FLUSH IV FLUSH SCH (09:00)
[2017-05-13] MEDS ORDERED: BUTA1CAP PO (09:41)
[2017-05-13] MEDS ORDERED: ACETAMIN 325 MG/BUTALBITAL 50 MG/CAFFEINE 40 MG TAB PO ONE (09:45)
[2017-05-13] MEDS: DOCUSATE SODIUM 50 MG/SENNA 8.6 MG TAB PO SCH (10:03)
[2017-05-13] MEDS: LISINOPRIL 20 MG TAB PO SCH (10:03)
[2017-05-13] MEDS: ASPIRIN 81 MG CHEW TAB CHEW SCH (10:03)
--- NOTE | 2017-05-13 12:07 | HHI.FPPN ---
Subjective Remarks Patient was seen and evaluated this morning. She continues to complain of headaches, which she feels are related to her high blood pressures. The patient states that Tylenol 650mg and [place] 5mg are not relieving her headaches. She also admits to some light sensitivity today. She denies chest pain, heart palpitations, shortness of breath, nausea and vomiting. Vision complaints are unchanged from yesterday. Patient states that Dr. Dixon asked her to follow up as an outpatient. She will refer the patient to a retinal specialist at that time. (Eunice Peters MD R1) Objective Vitals Vital Signs Date Time Temp Pulse Resp B/P Pulse Ox O2 Delivery O2 Flow Rate FiO2 05/13/17 11:15 97.8 75 15 182/95 97 05/13/17 08:01 98.1 68 16 181/88 100 05/13/17 03:42 97.6 69 16 145/87 100 05/12/17 20:59 98.1 70 18 172/86 98 05/12/17 19:02 98 21 05/12/17 15:32 98.5 76 20 156/88 98 (Eunice Peters MD R1) Result Diagram: 05/12/17 0558 05/12/17 0611 Imaging Last Impressions Orbit MRI 05/12/17 0000 Signed Impressions: Service Date/Time: Friday, May 12, 2017 19:30 - CONCLUSION: 1. Left unilateral staphyloma. 2. Chronic small vessel ischemic change. Cruz Rice Jr., MD Head CT 05/11/17 1706 Signed Impressions: Service Date/Time: Thursday, May 11, 2017 17:57 - CONCLUSION: Negative for acute process. Ray Gr MD FACR Objective Remarks GENERAL: Well-nourished, well-developed. Patient is sitting in hospital bed, eating breakfast. She is in no apparent distress. SKIN: Warm and dry. No obvious rashes. EYES: Bilateral eyes injected. No drainage. No scleral icterus. PERRLA. EOMI without pain. Left eye only appreciates light. HENT: Normocephalic. Atraumatic. MMM. NECK: Supple, trachea midline. No JVD or lymphadenopathy. CARDIOVASCULAR: Regular rate and rhythm without obvious murmurs, gallops, or rubs. RESPIRATORY: Clear to auscultation bilaterally. No increased work of breathing. GASTROINTESTINAL: Abdomen soft, non-tender, nondistended with positive bowel sounds. No hepatosplenomegaly. MUSCULOSKELETAL: No cyanosis or edema. NEURO/PSYCH: Alert and oriented 3. Cranial nerves II through XII intact. No focal abnormalities. Motor and sensory grossly normal. Medications and IVs Current Medications Medications (Trade) Dose Ordered Sig/Brii Route Start Time Stop Time Status Last Admin (NS Flush) 2 ml UNSCH PRN IV FLUSH 05/11/17 19:45 (NS Flush) 2 ml BID IV FLUSH 05/11/17 21:00 05/12/17 21:16 (Catapres) 0.1 mg Q6H PRN PO 05/11/17 19:45 (Tylenol) 650 mg Q4H PRN PO 05/11/17 19:45 05/12/17 04:27 (Zofran Inj) 4 mg Q6H PRN IVP 05/11/17 19:45 (Ambien) 5 mg HS PRN PO 05/11/17 19:45 (Heparin Inj) 5,000 units Q8HR SQ 05/11/17 22:00 05/13/17 06:24 (Monica-Colace) 1 tab BID PO 05/11/17 21:00 05/13/17 10:03 (D50w (Vial) Inj) 50 ml UNSCH PRN IV 05/11/17 20:00 (Glucagon Inj) 1 mg UNSCH PRN OTHER 05/11/17 20:00 (Aspirin Chew) 81 mg DAILY CHEW 05/12/17 09:00 05/13/17 10:03 (Lipitor) 40 mg HS PO 05/11/17 21:00 05/12/17 21:16 (Prinivil) 40 mg DAILY PO 05/12/17 09:00 05/13/17 10:03 ([place]acoma 5-325 Mg) 1 tab Q4H PRN PO 05/12/17 10:15 05/13/17 04:14 (Norvasc) 10 mg DAILY PO 05/14/17 09:00 (Eunice Peters MD R1) Urinary Catheter: No (Eunice Peters MD R1) Vascular Central Line Catheter: No (Eunice Peters MD R1) A/P Assessment and Plan This is a 61-year-old -Stateless female with past history significant for hypertension, hyperlipidemia, type 2 diabetes, and 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 Admitted for hypertensive emergency with visual changes. ( Eunice Peters MD R1) Attending Attestation The exam, history, and the medical decision-making described in the above note were completed with the assistance of the resident physician. I reviewed and agree with the findings presented. I attest that I had a [id number] encounter with the patient on the same day, and personally performed and documented my assessment and findings in the medical record. (Felecia Villela MD) Problem List: (1) Hypertensive emergency Status: Acute Plan: Patient's BP is ranging between 145-182/ 87-95 this morning. She has received Lisinopril 40 mg at 10:03; BP at 11:15 was 182/95. Amlodipine 10 mg daily PO has been ordered but not yet administered. Admitted to observation for hypertensive emergency. * In ED, her blood pressure was recorded as 230/110. After one dose of clonidine 0.2mg once PO, BP was 159/79. * Patient also complaining of visual changes in her right eye. Plan: * Started Fioricet for headache. * Patient received amlodipine 5mg last night; increased dose to 10 mg this morning - dose has not been given. * Ordered clonidine 0.1mg q6h PRN PO per protocol. * Continue home BP meds; Lisinopril 40mg daily PO. * Troponin x2 negative * EKGs x2 normal * Placed on telemetry * Vitals q4h. (2) Blurry vision, right eye Status: Acute Plan: New-onset right eye blurry vision. No pain with movement. No temporal pain. Peripheral vision limited. * CT performed - showed no acute processes. * MRI of orbits with and without contrast results: 1. Left unilateral staphyloma. 2. Chronic small vessel ischemic change. * Consulted ophthalmology, Dr. Dixon, recommendations appreciated. Per Dr. 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 Differential includes ocular histoplasmosis, toxoplasmosis, multifocal choroiditis. Patient does not fit the demographics for AMD. Last dilated exam was at [facility] in [place]. 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 Will need Retina referral for further evaluation and treatment. Patient states that Dr. Dixon would make referral when she sees her as an outpatient. * See Hypertensive Plan above. (3) Type 2 diabetes mellitus Status: Acute Plan: History of Type II diabetes. Holding metformin. * Blood glucoses per protocol. * Low-dose sliding scale per protocol. Has not required insulin since admission. (4) Fluid, Electrolyte, Nutrition and Prophylaxis Status: Acute Plan: Fluid: * Adequate PO intake. Electrolyte * Replete if necessary. Nutrition * Diabetic Diet DVT Prophylaxis: * SCDs - not using at this time. * Heparin 5,000 units q8h SQ. GI Prophylaxis: * Not indicated at this time. (Eunice Peters MD R1) Eunice Peters MD R1 May 13, 2017 12:07 Felecia Villela MD May 13, 2017 16:45
[2017-05-13] MEDS ORDERED: AMLO10 PO (12:36)
[2017-05-13] MEDS ORDERED: LISI40TA PO (12:36)
--- NOTE | 2017-05-13 12:37 | HHI.DCPOC ---
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 Avoid second hand smoke Call the 24-hour hour crisis hotline for domestic abuse at Caroline Jimenez MD R1 May 13, 2017 12:37 Felecia Villela MD May 13, 2017 16:44
[2017-05-13] MEDS ORDERED: ACETAMIN 325 MG/BUTALBITAL 50 MG/CAFFEINE 40 MG TAB PO PRN (15:15)
--- NOTE | 2017-05-14 11:54 | HHI.DS ---
Discharge Summary Admission Date May 12, 2017 at 16:16 Discharge Date: May 13, 2017 Admitting Diagnosis Hypertensive urgency/right eye blurriness (1) Hypertensive emergency Diagnosis: Principal (2) Blurry vision, right eye Diagnosis: Principal (3) Headache Diagnosis: Secondary (4) Type 2 diabetes mellitus Diagnosis: Secondary Consultants Dr. Dixon, Ophthalmology Brief History This is a 61-year-old -British female with a past medical history significant for HTN, hyperlipidemia, Type II Diabetes, and left eye blindness related to trauma as a child. She reports that on Thursday (05/08/17) she started to develop blurry vision of her right eye. Her left eye was unchanged from baseline; she is able to appreciate light only. She denies any eye pain. She denies any eye discharge. Over the next couple days her vision mildly improved however today (05/11/17), her vision became acutely worse so she decided to see her primary care physician, Dr. Bowden. She also started developing a severe headache. She admits to seeing black dots. The headache was located across her forehead; 05/11 in severity. She says she has been taking her medications but admits to not taking them today. She denies any chest pain, fever, chills, nausea and vomiting, abdominal pain, calf tenderness. She does not feel like she is having any palpitations. She does not think this is the worst headache of her life. She admits to having a six-month period in her life when she was in her 20s of complete loss of vision of her right eye. She was treated during that 6 month period uncertain as to who the physician was, as well as uncertain to the cause. Her vision gradually improved and was fully regained in her right eye. CBC/BMP: 05/12/17 0558 05/12/17 0611 Significant Findings Laboratory Tests Test 05/11/17 05/12/17 05/12/17 05/12/17 17:30 00:04 05:58 06:11 Activated Partial 20.4 SEC Thromboplast Time (24.3-30.1) Chloride Level 108 MEQ/L (98-107) Estimat Glomerular Filtration 80 ML/MIN (>89) 82 ML/MIN (>89) Rate Troponin I LESS THAN 0.02 LESS THAN 0.02 NG/ML NG/ML (0.02-0.05) (0.02-0.05) LDL Cholesterol 109 MG/DL (0-99) HDL Cholesterol 36.9 MG/DL (40.0-60.0) Monocytes (%) (Auto) 8.5 % (0.0-8.0) Random Glucose 110 MG/DL (74-106) Imaging Last Impressions Orbit MRI 05/12/17 0000 Signed Impressions: Service Date/Time: Friday, May 12, 2017 19:30 - CONCLUSION: 1. Left unilateral staphyloma. 2. Chronic small vessel ischemic change. Cruz Rice Jr., MD Head CT 05/11/17 1706 Signed Impressions: Service Date/Time: Thursday, May 11, 2017 17:57 - CONCLUSION: Negative for acute process. Ray Gr MD FACR PE at Discharge GENERAL: Well-nourished, well-developed. She is in no apparent distress. SKIN: Warm and dry. No obvious rashes. EYES: Bilateral eyes injected. No drainage. No scleral icterus. PERRLA. EOMI without pain. Left eye only appreciates light. HENT: Normocephalic. Atraumatic. MMM. NECK: Supple, trachea midline. No JVD or lymphadenopathy. CARDIOVASCULAR: Regular rate and rhythm without obvious murmurs, gallops, or rubs. RESPIRATORY: Clear to auscultation bilaterally. No increased work of breathing. GASTROINTESTINAL: Abdomen soft, non-tender, nondistended with positive bowel sounds. No hepatosplenomegaly. MUSCULOSKELETAL: No cyanosis or edema. NEURO/PSYCH: Alert and oriented 3. Cranial nerves II through XII intact. No focal abnormalities. Motor and sensory grossly normal. Hospital Course Patient was admitted with a blood pressure of 230/110. She also complained of new-onset right vision changes and headache. After one dose of clonidine 0.2mg once PO, blood pressure improved to 159/79. Patient's vision and headache remained unchanged. Thereafter, patient was treated with home blood pressure medication, Lisinopril 40 mg daily PO; blood pressure was not controlled. Amlodipine 5mg daily PO was added to regiment but blood pressure continued to remain above goal. Day two, Amlodipine was increased from 5mg to 10 mg daily PO. Patient received another dose of Clonidine 0.1mg PO, which corrected her blood pressure to goal pressures. Vision remained unchanged but patient was instructed by Dr. Dixon to follow-up with Dr. Dixon as an outpatient (see work- up below). Headaches were treated with Fioricet and resolved. Patient felt well and was stable at discharge. New-onset right eye blurry vision. No pain with movement. No temporal pain. Peripheral vision limited. * CT performed - showed no acute processes. * MRI of orbits with and without contrast results: 1. Left unilateral staphyloma. 2. Chronic small vessel ischemic change. * Consulted ophthalmology, Dr. Dixon, recommendations appreciated. Per Dr. 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 Differential includes ocular histoplasmosis, toxoplasmosis, multifocal choroiditis. Patient does not fit the demographics for AMD. Last dilated exam was at [facility] in [place]. 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 Will need Retina referral for further evaluation and treatment. Patient states that Dr. Dixon would make referral when she sees her as an outpatient. Pt Condition on Discharge: Stable Discharge Disposition: Discharge Home Discharge Instructions DIET: Follow Instructions for: Heart Healthy Diet Activities you can perform: Regular-No Restrictions Follow up Referrals: Ophthalmology - 1 Week with Gaye Dixon MD PCP Follow-up - 1 Week with Micah Bowden MD R1 New Medications: Czdaaswmwm-Tdkplctsxzclf-Oxsvsusm (Fioricet) 50-300-40 Mg Cap 1 CAP PO Q6H PRN HEADACHE #30 Ref 0 CAP Amlodipine (Norvasc) 10 Mg Tab 10 MG PO DAILY #30 TAB Continued Medications: Aspirin (Aspirin 81 Low Dose) 81 Mg Chew 81 MG CHEW DAILY #30 Ref 3 TAB Atorvastatin (Atorvastatin) 40 Mg Tab 40 MG PO HS Cholesterol Management #30 Ref 5 TAB Lisinopril (Lisinopril) 40 Mg Tab 40 MG PO DAILY Blood Pressure Management #30 Ref 0 TAB (This prescription has been renewed) Metformin (Metformin) 500 Mg Tab 500 MG PO BIDPC With meals Blood Sugar Management #60 Ref 5 TAB Eunice Peters MD R1 May 14, 2017 11:54
== END 2017-05-13 17:36 | disposition home or self-care (01) | DRG 305 ==
LOC: NEPC 16:03 → NEDA 19:16 → NEPFCDU 20:48 → OBSVTOIN 05-12 16:16
PROVIDERS: ADMIT Family Medicine; ATTEND Family Medicine
DX: I16.0 Hypertensive urgency (principal); H35.61 Retinal hemorrhage, right eye; E11.9 Type 2 diabetes mellitus without complications; E78.5 Hyperlipidemia, unspecified; I10 Essential (primary) hypertension; H54.42 Blindness, left eye, normal vision right eye; H53.8 Other visual disturbances; Z79.84 Long term (current) use of oral hypoglycemic drugs; Z79.82 Long term (current) use of aspirin; Z87.891 Personal history of nicotine dependence; H50.10 Unspecified exotropia; H31.001 Unspecified chorioretinal scars, right eye; R51 Headache
CPT/HCPCS: 70450; 70543; 80048; 80061; 82948; 84244; 84484; 85025; 85610; 85730; 93005; A9579; G0378; J1644

== ENCOUNTER → 2017-08-26 | Outpatient (CLI) | payer OTHER ==
[~2017-08-26] VITALS: Ht 165.1 cm; Wt 116.6 kg
[~2017-08-26] MED LIST changes: +AMLO10 PO; +CHLORHEXIDINE GLUCONATE 2 % 1 PACK (2 CLOTHS) TOPICAL PRN; +GABA300C5 PO; +GABA600T PO; +INSULIN HUMAN REGULAR 1,000 UNITS/10 ML VIAL SQ PRN; +LACTATED RINGER'S 1000 ML IV PRN; +LIDOCAINE HCL 1% PF 5 ML AMPULE OTHER ONE; +METOPROLOL TARTRATE 25 MG TAB PO PRN; +MULTTAB27 PO; +POVIDONE IODINE 5% (ANTISEPSIS KIT) 4 APPLICATIONS EACH NARE PRN; +PRED1SUS6 RIGHT EYE; +PROPOFOL 200 MG/20 ML AMP IV ONE; +SODIUM CHLORID 0.9% 500 ML IV PRN
[2017-08-26 12:39] VITALS: BP 102/69; PULSE 96; RESP 20; TEMP 98.3; O2SAT 98
--- NOTE | 2017-08-26 15:49 | GIPROC ---
[facility] [address] [facility]. [facility] [place], [id number] COLONOSCOPY PROCEDURE REPORT EXAM DATE: 08/26/2017 PATIENT NAME: Flower Villa MR #: [id number] BIRTHDATE: 1955 ENDOSCOPIST: Varun Brambila MD ORDER #: [id number] [employer] SUPERVISOR: Basil Michele and Tamara Pickering STATUS: outpatient INDICATIONS: The patient is a 61 yr old female here for a colonoscopy due to screening; average risk. PROCEDURE PERFORMED: Colonoscopy with biopsy MEDICATIONS: Per Anesthesia. PREP QUALITY: good ESTIMATED BLOOD LOSS: None CONSENT: The patient understands the risks and benefits of the procedure and understands that these risks include, but are not limited to: sedation, allergic reaction, infection, perforation and/or bleeding. Alternative means of evaluation and treatment include, among others: physical exam, x-rays, and/or surgical intervention. The patient elects to proceed with this endoscopic procedure. medical equipment was checked for proper function. Hand hygiene and appropriate measures for infection prevention was taken. After the risks, benefits and alternatives of the procedure were thoroughly explained, Informed consent was verified, confirmed and timeout was successfully executed by the treatment team. A digital exam was performed The Pentax [id number] endoscope was introduced through the anus and advanced to the cecum, which was identified by both the appendix and ileocecal valve. The instrument was then slowly withdrawn as the colon was fully examined. COLON FINDINGS: A diminutive smooth sessile polyp was found in the descending colon. A polypectomy was performed with cold forceps. The resection was complete and the polyp tissue was completely retrieved. Three diminutive smooth sessile polyps were found in the rectum. A polypectomy was performed with cold forceps. The resection was complete and the polyp tissue was completely retrieved. The scope was then completely withdrawn from the patient and the procedure terminated. ADVERSE EVENTS: There were no complications. IMPRESSIONS: 1. A diminutive sessile polyp was found in the descending colon; polypectomy was performed with cold forceps 2. Three diminutive sessile polyps were found in the rectum; polypectomy was performed with cold forceps RECOMMENDATIONS: Resume prior diet and medications RECALL: Based on pathology Varun Brambila MD eSigned: Varun Brambila MD 08/26/2017 3:49 PM cc: Dr. Micah Bowden PATIENT NAME: Flower Villa MR#: [id number]
[2017-08-26 16:16] VITALS: BP 123/82; PULSE 89; RESP 18; O2SAT 100
--- NOTE | 2017-08-26 21:29 | EKG ---
Date Performed: 08/26/2017 Time Performed: 11:57:39 PTAGE: 61 years EKG: Sinus rhythm POSSIBLE RIGHT VENTRICULAR CONDUCTION DELAY BORDERLINE ECG PREVIOUS TRACING : 05/12/2017 05.32 Compared to prior tracing no significant change DOCTOR: Elio Sanders Interpretating Date/Time 08/26/2017 21:27:30
== END ==
LOC: HEND 11:10
DX: Z12.11 Encounter for screening for malignant neoplasm of colon (principal); D12.4 Benign neoplasm of descending colon; K62.1 Rectal polyp; E11.9 Type 2 diabetes mellitus without complications; Z01.810 Encounter for preprocedural cardiovascular examination; Z87.891 Personal history of nicotine dependence; Z79.84 Long term (current) use of oral hypoglycemic drugs
CPT/HCPCS: 88305; 93005